=== PATIENT | female | born 1930 | race Caucasian/White ===

== ENCOUNTER → 2018-03-03 | Emergency (ER) | payer MEDICARE ==
[~2018-03-03] VITALS: Ht 167.6 cm; Wt 72.7 kg
[~2018-03-03] MED LIST: ANAS1TAB50 PO; DONE10TA8 PO; IBUPROFEN 600 MG TABLET PO ONE; LIDOCAINE 1% 10 ML VIAL INJ ONE; MAGN200T8 PO; PERTUSS(ACELL),DIPH,TET VAC/PF 0.5 ML VIAL IM ONE; SIMV-260 PO
[2018-03-03 17:20] VITALS: BP 179/60
== END | disposition home or self-care (01) ==
LOC: EMS 12:57
DX: S81.811A Laceration without foreign body, right lower leg, initial encounter (principal); E11.9 Type 2 diabetes mellitus without complications; I10 Essential (primary) hypertension; E78.00 Pure hypercholesterolemia, unspecified; N28.9 Disorder of kidney and ureter, unspecified; Z79.899 Other long term (current) drug therapy; Z85.3 Personal history of malignant neoplasm of breast; W26.8XXA Contact with other sharp object(s), not elsewhere classified, initial encounter; Y93.39 Activity, other involving climbing, rappelling and jumping off; Y92.89 Other specified places as the place of occurrence of the external cause; Y99.8 Other external cause status
CPT/HCPCS: 12006; 90471; 90715; 99283; J3490